=== PATIENT | female | born 1950 | race Caucasian/White ===

== ENCOUNTER → 2016-12-22 | Outpatient (CLI) | payer MEDICARE, OTHER | LOC: HEART 5 12-21 09:00 | DX: E03.9 Hypothyroidism, unspecified (principal); I10 Essential (primary) hypertension; R06.02 Shortness of breath; R07.89 Other chest pain | CPT/HCPCS: 78452; 93306; A9502 ==

== ENCOUNTER → 2021-01-13 | Outpatient (CLI) | payer MEDICARE, OTHER ==
[~2021-01-13] MED LIST: ASPIR-LOW81 MG PO
== END ==
LOC: MAMO 09:59
DX: Z12.31 Encounter for screening mammogram for malignant neoplasm of breast (principal)
CPT/HCPCS: 77063; 77067

== ENCOUNTER → 2021-01-30 | Outpatient (CLI) | payer MEDICARE, OTHER | LOC: KOH-I 10:43 | DX: R05 Cough (principal) | CPT/HCPCS: 71046 ==

== ENCOUNTER → 2021-06-12 | Outpatient (CLI) | payer MEDICARE, OTHER | LOC: MRI 08:45 | DX: K75.4 Autoimmune hepatitis (principal); K76.0 Fatty (change of) liver, not elsewhere classified; N28.1 Cyst of kidney, acquired; K86.89 Other specified diseases of pancreas | CPT/HCPCS: 74183 ==

== ENCOUNTER → 2021-06-13 | Outpatient (CLI) | payer MEDICARE, OTHER | LOC: MRI 13:06 | DX: K75.4 Autoimmune hepatitis (principal) | CPT/HCPCS: A9577 ==

== ENCOUNTER 2021-07-05 12:41 | Emergency (ER) | payer MEDICARE, OTHER ==
[2021-07-05] MEDS ORDERED: CILOXAN 0.3% O2.5 ML OU (16:15)
[2021-07-05] MEDS ORDERED: DOXYCYCLINE HY100 MG PO (16:15)
== END 2021-07-05 17:05 | disposition home or self-care (01) ==
LOC: ER1 12:41
DX: H53.142 Visual discomfort, left eye (principal); Z79.899 Other long term (current) drug therapy; I10 Essential (primary) hypertension
CPT/HCPCS: 99282